=== PATIENT | female | born 1965 | race Caucasian/White ===

== ENCOUNTER 2017-10-15 15:31 | Inpatient (IN) | payer BC ==
[~2017-10-15] VITALS: Ht 157.5 cm; Wt 76.8 kg
[2017-10-15 16:28] LABS: BASOPHIL % 0.1 % (0-2); PLATELET COUNT 277 x10^3mcL (130-400); RED CELL DISTRIBUTION WIDTH 14.1 % (11.5-14.5)
[2017-10-15 16:39] LABS: CALCIUM 9.9 mg/dL (8.5-10.1); CARBON DIOXIDE 28.2 mmol/L (21-32); CHLORIDE SERUM 103 mmol/L (98-107); CREATININE SERUM 0.6 mg/dL (0.6-1.0); GFR1 > 60 mL/min; GLUCOSE SERUM 111 mg/dL (74-106); POTASSIUM SERUM 3.5 mmol/L (3.5-5.1); SODIUM SERUM 141 mmol/L (136-145)
[2017-10-15 16:44] LABS: ALBUMIN 4.2 g/dL (3.4-5.0); ALKALINE PHOSPHATASE 90 U/L (46-116); ALT/SGPT 49 U/L (14-59); AST/SGOT 35 U/L (15-37); BILIRUBIN TOTAL 0.33 mg/dL (0.20-1.00); LIPASE 63 IU/L (73-393)
[2017-10-15] MEDS ORDERED: LEVOTHYROXIN0.125 M2 PO (17:12)
[2017-10-15 17:56] LABS: T3 TOTAL 1.11 ng/mL
[2017-10-15 17:57] LABS: FREE T4 1.61 ng/dL (0.76-1.46)
[2017-10-15 18:03] LABS: FREE THYROXINE INDEX 4.7 ug/dL (1.4-4.5); T4(THYROXINE) 13.5 ug/dL (4.7-13.3)
[2017-10-15 18:07] LABS: MAGNESIUM 1.9 mg/dL (1.8-2.4); PHOSPHOROUS 2.9 mg/dL (2.5-4.9)
[2017-10-15 18:12] LABS: microscopic required? NO
[2017-10-15 18:20] LABS: urine erythrocyte NEGATIVE (NEGATIVE)
[2017-10-15 18:28] LABS: CHOLESTEROL/HDL RATIO 3.8
[2017-10-15 19:42] VITALS: BP 134/72
[2017-10-15 19:46] VITALS: Ht 157.5 cm; Wt 76.8 kg
[2017-10-16 06:24] VITALS: BP 106/61
[2017-10-16 06:59] LABS: CALCIUM 9.1 mg/dL (8.5-10.1); CARBON DIOXIDE 24.9 mmol/L (21-32); CHLORIDE SERUM 105 mmol/L (98-107); CREATININE SERUM 0.6 mg/dL (0.6-1.0); GFR1 > 60 mL/min; GLUCOSE SERUM 120 mg/dL (74-106); POTASSIUM SERUM 4.2 mmol/L (3.5-5.1); SODIUM SERUM 141 mmol/L (136-145)
[2017-10-16 07:11] LABS: BASOPHIL % 0.3 % (0-2); PLATELET COUNT 229 x10^3mcL (130-400); RED CELL DISTRIBUTION WIDTH 14.1 % (11.5-14.5)
[2017-10-16 10:00] VITALS: BP 104/67
[2017-10-16 13:30] VITALS: BP 125/68
[2017-10-16 17:34] VITALS: BP 120/70
[2017-10-16 21:47] VITALS: BP 127/62
[2017-10-17 06:09] VITALS: BP 121/66
[2017-10-17 07:30] LABS: BASOPHIL % 0.2 % (0-2); PLATELET COUNT 219 x10^3mcL (130-400); RED CELL DISTRIBUTION WIDTH 14.5 % (11.5-14.5)
[2017-10-17 07:38] LABS: CALCIUM 8.5 mg/dL (8.5-10.1); CARBON DIOXIDE 25.7 mmol/L (21-32); CHLORIDE SERUM 108 mmol/L (98-107); CREATININE SERUM 0.6 mg/dL (0.6-1.0); GFR1 > 60 mL/min; GLUCOSE SERUM 89 mg/dL (74-106); POTASSIUM SERUM 3.5 mmol/L (3.5-5.1); SODIUM SERUM 142 mmol/L (136-145)
[2017-10-17 09:55] VITALS: BP 107/54
[2017-10-17 13:53] VITALS: BP 107/54
[2017-10-17 14:29] VITALS: BP 103/52
== END 2017-10-17 15:42 | disposition home or self-care (01) | DRG 343 ==
LOC: ED 15:31 → DU 17:22
PROVIDERS: Emergency Medicine; Family Medicine; Surgery
PROC: 0DTJ4ZZ Resection of Appendix, Percutaneous Endoscopic Approach (ICD-10-PCS; principal; 2017-10-16 08:00)
DX: K35.80 Unspecified acute appendicitis (principal); I44.7 Left bundle-branch block, unspecified; E78.5 Hyperlipidemia, unspecified; E03.9 Hypothyroidism, unspecified; Z88.8 Allergy status to other drugs, medicaments and biological substances; Z90.710 Acquired absence of both cervix and uterus; Z90.49 Acquired absence of other specified parts of digestive tract
CPT/HCPCS: 83880; 84439; 94150; J0330; J0690; J0696; J1644; J2175; J2250; J2270; J2405; J2704; J2710; J3010; J3490; J7030; J7120; Q0092; Q0162

== ENCOUNTER 2017-11-04 08:51 | Emergency (ER) | payer BC ==
[~2017-11-04] VITALS: Ht 157.5 cm; Wt 78.0 kg
[~2017-11-04 08:51] MED LIST: LEVOTHYROXIN0.125 M2 PO
[2017-11-04 08:55] VITALS: Ht 157.5 cm; Wt 78.0 kg
[2017-11-04 10:19] LABS: BASOPHIL % 0.4 % (0-2); PLATELET COUNT 266 x10^3mcL (130-400); RED CELL DISTRIBUTION WIDTH 14.1 % (11.5-14.5)
[2017-11-04 10:55] LABS: ALBUMIN 3.5 g/dL (3.4-5.0); ALKALINE PHOSPHATASE 80 U/L (46-116); ALT/SGPT 38 U/L (14-59); AMYLASE 61 U/L (25-115); AST/SGOT 21 U/L (15-37); BILIRUBIN TOTAL 0.2 mg/dL (0.20-1.00); CALCIUM 8.9 mg/dL (8.5-10.1); CARBON DIOXIDE 25.7 mmol/L (21-32); CHLORIDE SERUM 104 mmol/L (98-107); CHOLESTEROL 186 mg/dL (<200); CREATININE SERUM 0.6 mg/dL (0.6-1.0); GFR1 > 60 mL/min; GLUCOSE SERUM 100 mg/dL (74-106); HDL CHOLESTEROL 42 mg/dL (40-60); LIPASE 77 IU/L (73-393); POTASSIUM SERUM 3.7 mmol/L (3.5-5.1); SODIUM SERUM 138 mmol/L (136-145); TOTAL PROTEIN, SERUM 6.9 g/dL (6.4-8.2)
[2017-11-04 11:14] LABS: microscopic required? NO
[2017-11-04 11:55] LABS: UA SPECIFIC GRAVITY <=1.005 (1.005-1.035); urine erythrocyte NEGATIVE (NEGATIVE)
[2017-11-04 12:04] LABS: AMPHETAMINE QUAL UR NONE DETECTED (NEG <=1000)
[2017-11-04 13:02] LABS: MAGNESIUM 1.7 mg/dL (1.8-2.4); PHOSPHOROUS 2.9 mg/dL (2.5-4.9)
[2017-11-05 01:06] VITALS: BP 132/74
== END 2017-11-05 01:06 | disposition left against medical advice (07) ==
LOC: ED 08:51
PROVIDERS: Emergency Medicine; Family Medicine
DX: I44.7 Left bundle-branch block, unspecified (principal); E03.9 Hypothyroidism, unspecified; E78.00 Pure hypercholesterolemia, unspecified; Z88.1 Allergy status to other antibiotic agents; Z88.2 Allergy status to sulfonamides; Z88.6 Allergy status to analgesic agent; Z90.89 Acquired absence of other organs; Z90.49 Acquired absence of other specified parts of digestive tract; Z90.710 Acquired absence of both cervix and uterus
CPT/HCPCS: 83880; J1885; Q0092